=== PATIENT | male | born 1965 | race Caucasian/White ===

== ENCOUNTER 2018-10-16 11:30 | Emergency (ER) | payer OTHER ==
[~2018-10-16] VITALS: Ht 172.7 cm; Wt 108.4 kg
[2018-10-16] MEDS ORDERED: BACTRIM DS TAB1 EACH PO (18:53)
[2018-10-16] MEDS ORDERED: URIN D.S. TABL1 EACH PO (18:53)
[2018-10-16] MEDS ORDERED: INTESTINEX680 M1 PO (18:53)
== END 2018-10-16 19:13 | disposition home or self-care (01) ==
LOC: ER 11:30
DX: N30.80 Other cystitis without hematuria (principal)